=== PATIENT | female | born 1965 ===

== ENCOUNTER → 2021-11-13 15:22 | Outpatient (CLI) | payer OTHER, SELFPAY ==
--- NOTE | ~2021-11-13 | CT_ITS ---
CT femur LT wo con DATE: 11/13/2021 16:04 INDICATION: Benign lipomatous neoplasm TECHNIQUE: Axial CT images through the left hip and upper leg; sagittal and coronal reconstructions Exam dose: 433.96 mGy-cm total exam DLP. COMPARISON: None FINDINGS: No fracture, dislocation, periosteal reaction or bone destruction of the left hip or left f emur. No soft tissue mass lesion is evident. There is subcutaneous adipose tissue beneath the skin marker f or reported lump. The left may be due to normal subcutaneous fat or possibly lipoma. No suspicious ma ss lesion is noted. IMPRESSION: No significant abnormality Reviewed, dictated and finalized at [facility]. Reviewed, dictated and finalized at [facility]. IMPRESSION: No significant abnormality
== END ==
PROVIDERS: PCP Family Medicine; Visit Provider Family Medicine
DX: D17.9 Benign lipomatous neoplasm, unspecified (principal)
CPT/HCPCS: 73700

== ENCOUNTER 2024-04-01 19:49 | Outpatient (CLI) | payer OTHER, SELFPAY ==
--- NOTE | 2024-04-16 21:54 | WPDSLEEPSTUD ---
Sleep Study Date of Study: 04/01/24 Ordering Provider: Silvano Downey MD Interpreting Physician: Eva Lowry MD Sleep Study Type: Split Polysomnogram Height: 1.65 m Weight: 63.503 kg Body Mass Index: 23.3 Neck Circumference (inches): 13 [place]: 3 Reason for Sleep Study Poor quality sleep, waking up feeling short of breath, anxiety, snoring Sleep History Savita Anderson is a 58-year-old female with a home sleep test in 2021 showing sleep apnea, CPAP was recommended but she could not tolerate the mask. In 2022 she was fitted with an oral appliance but did not have much success. She does not awaken from sleep feeling short of breath. She occasionally awakens at night with heartburn, belching or coughing. She frequently snores loudly enough that others complain. She rarely has difficulty sleeping when she has a cold. She occasionally wakes up gasping for breath at night. She rarely has breathing problems at night observed by others. She rarely sweats excessively at night. She occasionally notices her heart pounding or beating irregularly night. She rarely falls asleep during the day. She does not fall asleep involuntarily or while driving. She does not have loss of muscle tone with strong emotion. She does not have daytime difficulties due to excessive sleepiness. She does not feel paralyzed on waking or falling asleep. She does not have vivid dreamlike scenes upon awakening or falling asleep. She does not feel afraid to go to sleep. She rarely has nightmares. She occasionally remembers her dreams. She occasionally has racing thoughts. She rarely feels sad or depressed. She occasionally has anxiety. She occasionally has muscular tension. She does not notice parts of her body jerking. She rarely kicks at night. She does not have aching or crawling feelings in her legs. She does not have any kind of leg pain at night. She does not have morning jaw pain. She rarely grinds her teeth at night. She rarely is bothered by pain during the day. She rarely is awakened by pain at night. She does not wake up feeling stiff in the morning, does not wake up with sore achy muscles are pain in the neck and spine. Normal bedtime is between 8:30 p.m. and 9:00 p.m., falling asleep within a 1/2 hour, waking approximately 3 times. While awake she looks at the clock, tosses and turns, returns to sleep. Her normal wake time is 5:20 a.m.. On weekends, her bedtime is 10:00 p.m., wake time is 7:30 a.m.. She estimates getting between 7 and 8 hours of sleep at night. Sometimes she takes a nap on the weekends. A short nap lasting 10-15 minutes is not refreshing. She feels better in the afternoon compared to other times of day. Habits: Tobacco: former smoker, smoked lightly in her 20s Caffeine: 2-3 sodas per day Alcohol: Occasional alcoholic beverage Recreational substance: none PMFSH Past Medical History Medical History (Updated 04/16/24 @ 22:01 by Eva Lowry MD) Non-cardiac chest pain Anemia Anxiety Gastroesophageal reflux disease Hypertension Obstructive sleep apnea Surgical History Surgical History (Updated 04/16/24 @ 22:00 by Eva Lowry MD) History of melanoma excision thigh History of submandibular gland removal Social History Social History (Updated 04/16/24 @ 22:00 by Eva Lowry MD) Smoking status: Former smoker Medications Medications: Nasacort AQ 55 mcg per spray, 2 sprays each nostril daily Alprazolam 0.25 mg 1 t.i.d. as needed Lexapro 10 mg daily Multivitamin 1 daily Pantoprazole 20 mg daily Famotidine 20 mg daily Sleep Procedure A split night polysomnogram using the [facility] multi-channel system recorded the standard physiologic parameters including EEG, EOG, submentalis EMG, anterior tibialis EMG, EKG, body position, nasal and oral airflow using nasal pressure sensor and thermistor. Respiratory parameters of chest and abdominal movements were recorded with Respiratory Inductance Plethysmography belts. Oxygen saturation was recorded by pulse oximetry. Video monitoring was also performed. Sleep stages, periodic limb movements, and EEG arousals were scored in 30 second epochs according to the criteria of the AASM Scoring Manual. The Apnea-Hypopnea Index was calculated using CMS guidelines for definition of hypopnea while scoring respiratory events. After the baseline portion the patient met criteria for a titration with an AHI of 5.3 and desaturation to 89%. She used a small ResMed AirFit P 30 I nasal pillow with heated humidity, had a difficult time initially with CPAP 5 cm, was switched to BiPAP 8/4 which was more comfortable. She was awake on bilevel 8/4 for over an hour. She was then increased to bilevel 10/4 for about 10 minutes, had 8 minutes of non-REM. She was then switched back to CPAP 5 then CPAP 7. She had REM and excellent sleep efficiency on both of these settings. On CPAP 7 she spent 59 minutes in bed, 4.5 minutes awake, 41.5 minutes in non-REM, 13 minutes in REM with a sleep efficiency of 92.4%, a residual apnea-hypopnea index of 2.2 and a minimum saturation of 91%. This appears to be the optimal pressure. She first tried a small ResMed AirFit N30 mask however the small ResMed P30I was more comfortable. Sleep Architecture Baseline During the diagnostic portion of the study, the total recording time was 252.3 minutes. The total sleep time was 192.0 minutes. Sleep latency was 14.8 minutes. REM latency was 204.5 minutes. Sleep Efficiency was 76.1%. The patient had 18 awakenings for an awakening index of 5.6. Wake after sleep onset time was 45.5 minutes. The patient spent 15.5 minutes, 8.1% of total sleep time in Stage N1. The patient spent 99.0 minutes, 51.6% in Stage N2. The patient spent 53.5 minutes, 27.9% in Stage N3. The patient spent 24.0 minutes, 12.5% in Stage REM sleep. Titration At 02:00:38 AM the patient was placed on PAP treatment. During the treatment portion of the study, the total recording time was 242.4 minutes. The total sleep time was 160.0 minutes. Sleep latency was 69.5 minutes. REM latency was 78.5 minutes. Sleep Efficiency was 66.0%. Wake after Sleep Onset time was 13.0 minutes. The patient spent 11.5 minutes, 7.2% of total sleep time in Stage N1. The patient spent 92.5 minutes, 57.8% in Stage N2. The patient spent 21.0 minutes, 13.1% in Stage N3. The patient spent 35.0 minutes, 21.9% in Stage REM. Respiratory Analysis Baseline During the diagnostic portion of the study, the patient had 15 hypopneas, 1 obstructive apneas, no mixed apneas, and 1 central apnea for an overall Apnea Hypopnea Index of 5.3 events per hour. The REM Apnea Hypopnea Index was 12.5. The NREM Apnea Hypopnea Index was 4.6. The patient had a Central Apnea Hypopnea Index of 0.3. There were no Respiratory Effort Related Arousals. The Respiratory Disturbance Index is 8.8 events per hour. There was no evidence of Timmy-Lucia Respirations. Titration During the treatment portion of the study, the patient had no hypopneas, 1 obstructive apnea, 1 mixed apnea, and 1 central apnea for an overall Apnea Hypopnea Index of 1.1 events per hour. The REM Apnea Hypopnea Index was 3.4. The NREM Apnea Hypopnea Index was 0.5. The patient had a Central Apnea Hypopnea Index of 0.4. There were no Respiratory Effort Related Arousals. The Respiratory Disturbance Index is 2.3 events per hour. There was no evidence of Timmy-Lucia Respirations. Arousals Baseline During the diagnostic portion of the study, there were a total of 105 arousals for an arousal index of 32.8. There were 12 respiratory arousals for an index of 3.8. There were 14 periodic limb movement arousals for an index of 4.4. There were 7 isolated limb movement arousals for an index of 2.2. There were 72 spontaneous arousals for an index of 22.5. Titration During the treatment portion of the study, there were a total of 32 arousals for an index of 12.0. There were no respiratory arousals. There were no periodic limb movement arousals. There were no isolated limb movement arousals. There were 32 spontaneous arousals for an index of 12.0. Periodic Limb Movements Baseline During the diagnostic portion of the study, the patient had 9 isolated limb movements with an index of 2.8. The patient had 26 periodic limb movements with an index of 8.1. The patient had a total of 35 limb movements with a total limb movement index of 10.9. Titration During the treatment portion of the study, the patient had no isolated limb movements or periodic limb movements. Oximetry Data Baseline During the diagnostic portion of the study, the patient had an average oxygen saturation of 96% in wake with a minimum oxygen saturation of 925 and a maximum oxygen saturation of 100%. The patient had an average oxygen saturation of 94.8% in sleep with a minimum oxygen saturation of 89% and a maximum oxygen saturation of 98%. The patient had 27 oxygen desaturations resulting in an Oxygen Desaturation Index of 8.4. The patient spent no time sleep time with an oxygen saturation less than 88%. Titration During the treatment portion of the study, the patient had an average oxygen saturation of 95.8% in wake with a minimum oxygen saturation of 91% and a maximum oxygen saturation of 99%. The patient had an average oxygen saturation of 94.7% in sleep with a minimum oxygen saturation of 91% and a maximum oxygen saturation of 98%. The patient had 4 oxygen desaturations resulting in an Oxygen Desaturation Index of 1.5. The patient spent no time time with an oxygen saturation less than 88%. Snoring Profile Snoring was mild, eliminated during the titration. Cardiac Profile Baseline During the diagnostic portion of the study, the EKG showed normal sinus rhythm. The average pulse rate was 62.6 bpm. The minimum pulse rate was 53 bpm. The maximum pulse rate was 91 bpm. No arrhythmias noted. Titration During the treatment portion of the study, the EKG showed normal sinus rhythm. The average pulse rate was 58.1 bpm. The minimum pulse rate was 51 bpm. The maximum pulse rate was 78 bpm. No arrhythmias noted. EEG Profile EEG was unremarkable, no evidence of seizures. Assessment and Plan Assessment and Plan (1) Obstructive sleep apnea: Code(s): G47.33 - Obstructive sleep apnea (adult) (pediatric) Status: Acute Assessment and Plan: This split night sleep study on 04/01/2024 shows mild obstructive sleep apnea, the apnea-hypopnea index is 5.3 with desaturation 89%. She had all stages of sleep on the baseline study with a prolonged period of wakefulness when she started using the CPAP. She eventually had supine REM while using CPAP 5 and CPAP 7. On CPAP 7 she spent 59 minutes in bed, 4.5 minutes awake, 41.5 minutes in non-REM, 13 minutes in REM with a sleep efficiency of 92.4%, a residual apnea-hypopnea index of 2.2 and a minimum saturation of 91%. This appears to be the optimal pressure. She was most comfortable using a small ResMed P30I with CPAP 7 cm, and this is what I recommend for her to have for home use. The patient should be prescribed this ResMed equipment as well as tubing, filters and reservoir. This should be used with all episodes of sleep. Compliance should be reviewed within 31-90 days of starting therapy for usage greater than 4 hours per night greater than 70% of the nights. The patient should be asked about symptoms such as excessive daytime sleepiness, quality of sleep, decreased nocturia, increased mental functioning such as memory, mood, and concentration. Data The data obtained during this sleep study is adequate for interpretation. Certification This sleep study has been reviewed by a board certified sleep medicine physician.
[2024-04-19 13:01] VITALS: BMI 23.3
== END 2024-04-02 06:26 | disposition home or self-care (01) ==
PROVIDERS: PCP Family Medicine; Visit Provider Family Medicine
DX: G47.33 Obstructive sleep apnea (adult) (pediatric) (principal)
CPT/HCPCS: 95811

== ENCOUNTER 2024-07-29 07:44 | Outpatient (CLI) | payer OTHER, SELFPAY ==
--- NOTE | ~2024-07-29 | US_ITS ---
EXAMINATION: US transvaginal INDICATION: Abnormal uterine bleeding Comparison:Postmenopausal bleeding TECHNIQUE: Multiple endovaginal sonographic images of the pelvis performed. FINDINGS: The uterus measures 7.2 x 2.8 x 4.2 cm. The endometrial complex measures 1.2 mm. There are 2 calcified masses of the uterus, largest measuring 8 mm, compatible with uterine fibroids. The ovaries are not visualized. There is no free fluid in the pelvis. There are no abnormal masses seen on either side. IMPRESSION: 1. Small calcified uterine fibroids measuring 8 mm or less. Otherwise, unremarkable pelvic ultrasound . Reviewed, dictated and finalized at [facility]. IMPRESSION: 1. Small calcified uterine fibroids measuring 8 mm or less. Otherwise, unremark able pelvic ultrasound.
== END 2024-07-29 07:45 | disposition home or self-care (01) ==
LOC: MICIMG 07:44
PROVIDERS: PCP Family Medicine; Visit Provider Obstetrics & Gynecology
DX: N93.9 Abnormal uterine and vaginal bleeding, unspecified (principal); D25.9 Leiomyoma of uterus, unspecified
CPT/HCPCS: 76830